=== PATIENT | male | born 1955 | race African-American/Black ===

== ENCOUNTER 2018-02-08 21:24 | Emergency (ER) | payer OTHER, BC ==
[~2018-02-08] VITALS: Ht 170.2 cm; Wt 107.0 kg
[~2018-02-08 21:24] MED LIST: ACETAMINOPHEN325 M1 PO; ALLEGRA ALLERG180 MG PO; ASPIRIN EC325 M1 PO; ASTEPRO INH; CEFDINIR300 MG PO; FLOVENT DISKU100 MCG IH; NEXIUM40 MG PO; NICOTINE TRANSD21 M1 TRANSDERM; PREDNISONE 10 M10 MG PO; PROAIR HFA8.5 GM; ZOCOR 20 MG TAB20 M1 PO
[2018-02-08 21:35] LABS: URINE BILIRUBIN NEGATIVE (Negative); URINE BLOOD NEGATIVE (Negative); URINE CLARITY CLEAR; URINE COLOR YELLOW; URINE GLUCOSE-RANDOM* NEGATIVE (Negative); URINE KETONES NEGATIVE (Negative); URINE NITRITE-REFLEX NEGATIVE (Negative); URINE PROTEIN (DIPSTICK) 1+ (Negative); URINE UROBILINOGEN 0.2 E.U./dl (0.2-1.0)
[2018-02-08 21:36] LABS: URINE LEUKOCYTES-REFLEX 1+ (Negative)
[2018-02-08 21:44] LABS: CASTS None Seen /LPF (None Seen); CRYSTALS None Seen /LPF (None Seen)
[2018-02-08 21:45] LABS: SQUAMOUS None Seen /LPF (0-3); URINE RBC None Seen /HPF (0-2)
[2018-02-08 21:46] LABS: BACTERIA-REFLEX 1-9 Few /HPF (None Seen)
[2018-02-08] MEDS ORDERED: BACTRIM DS TAB1 EACH PO (22:13)
[2018-02-08] MEDS ORDERED: FLOMAX0.4 MG PO (22:27)
[2018-02-08 23:19] LABS: ABSOLUTE NEUTROPHILS 8.1 thou/uL (1.4-8.2); BASOPHILS 1.2 % (0.0-2.0); EOSINOPHILS 0.3 % (0.0-3.0); HEMATOCRIT 40.9 % (42.0-52.0); HEMOGLOBIN 13.7 gm/dL (14.0-18.0); LYMPHOCYTES 23.8 % (24.0-44.0); MCH 29.1 pg (26.0-34.0); MCHC 33.4 g/dL (28.0-37.0); MCV 87.2 fL (80.0-100.0); MONOCYTES 9.9 % (1.0-8.0); PLATELET COUNT 252 thou/uL (150-400); POLYS 64.8 % (36.0-66.0); RBC 4.69 mil/uL (4.50-6.00); RDW 15.1 % (10.5-14.5); WBC 12.5 thou/uL (4.0-11.0)
[2018-02-08 23:22] LABS: CALCIUM 9.1 mg/dL (8.5-10.1); CREATININE 1.3 mg/dL (0.7-1.3)
[2018-02-08 23:29] LABS: ALBUMIN 3.6 g/dL (3.4-5.0); TOTAL BILIRUBIN 0.3 mg/dL (<0.1-1.0); TOTAL PROTEIN 8.5 g/dL (6.4-8.2)
[2018-02-08 23:53] VITALS: BP 146/76
== END 2018-02-08 23:54 | disposition home or self-care (01) ==
LOC: ER 21:24
PROVIDERS: Emergency Medicine; Physician Assistant
DX: N41.0 Acute prostatitis (principal); R33.9 Retention of urine, unspecified; J45.909 Unspecified asthma, uncomplicated

== ENCOUNTER 2018-08-31 21:53 | Emergency (ER) | payer OTHER, BC ==
[~2018-08-31] VITALS: Ht 172.7 cm; Wt 109.8 kg
[~2018-08-31 21:53] MED LIST changes: +BACTRIM DS TAB1 EACH PO; +FLOMAX0.4 MG PO
[2018-08-31 22:27] LABS: HEMATOCRIT 40.7 % (42.0-52.0); HEMOGLOBIN 13.6 gm/dL (14.0-18.0); MCH 29.2 pg (26.0-34.0); MCHC 33.3 g/dL (28.0-37.0); MCV 87.5 fL (80.0-100.0); PLATELET COUNT 272 thou/uL (150-400); RBC 4.65 mil/uL (4.50-6.00); RDW 14.9 % (10.5-14.5); WBC 8.9 thou/uL (4.0-11.0)
[2018-08-31 22:37] LABS: CALCIUM 8.4 mg/dL (8.5-10.1); CREATININE 1.2 mg/dL (0.7-1.3); POTASSIUM 3.8 mmol/L (3.5-5.1)
[2018-08-31 22:42] LABS: ALBUMIN 3.6 g/dL (3.4-5.0); TOTAL BILIRUBIN 0.3 mg/dL (<0.1-1.0)
[2018-08-31 22:53] LABS: URINE CLARITY TURBID; URINE COLOR RED
[2018-08-31 22:54] LABS: URINE BILIRUBIN NEGATIVE (Negative); URINE BLOOD 3+ (Negative); URINE GLUCOSE-RANDOM* 1+ (Negative); URINE KETONES NEGATIVE (Negative); URINE LEUKOCYTES-REFLEX NEGATIVE (Negative); URINE NITRITE-REFLEX POSITIVE (Negative); URINE PROTEIN (DIPSTICK) 3+ (Negative); URINE UROBILINOGEN 0.2 E.U./dl (0.2-1.0)
[2018-08-31 23:05] LABS: BACTERIA-REFLEX 1-9 Few /HPF (None Seen); CASTS None Seen /LPF (None Seen); MUCUS None Seen strn/LPF (None Seen); SQUAMOUS None Seen /LPF (0-3); URINE RBC >20 Many /HPF (0-2); URINE WBC-REFLEX 0-5 Rare /HPF (0-5)
[2018-08-31 23:06] LABS: CRYSTALS None Seen /LPF (None Seen)
[2018-08-31 23:42] LABS: ABSOLUTE NEUTROPHILS 1.8 thou/uL (1.4-8.2); ATYPICAL LYMPHS 9 %
[2018-09-01 01:46] VITALS: BP 134/91
== END 2018-09-01 01:46 | disposition short-term general hospital (02) ==
LOC: ER 21:53
PROVIDERS: Emergency Medicine
DX: R31.9 Hematuria, unspecified (principal); J45.909 Unspecified asthma, uncomplicated; Z86.73 Personal history of transient ischemic attack (TIA), and cerebral infarction without residual deficits; Z90.49 Acquired absence of other specified parts of digestive tract

== ENCOUNTER 2020-05-20 16:53 | Inpatient (IN) | payer OTHER ==
[~2020-05-20] VITALS: Ht 165.1 cm; Wt 107.0 kg
--- NOTE | ~2020-05-20 | HC ---
[facility] [place] [address] CONSULTATION Name: HIREN MCCORMACK Room #: 206-P ADM IN M.R.#: [id number] Admission: 05/20/20 Attend Phys: Benjamin Chase MD Discharge: Date of : 51 Report #: [id number] THIS REPORT FOR: cc: FAM - Family physician unknown ANN - Family physician unknown Marco Alvarez MD [facility] ~ CC: ANN unknown Benjamin Chase DATE OF SERVICE: 05/20/2020 HISTORY OF PRESENT ILLNESS: The patient is a 64-year-old male who comes to the Emergency Room with 2 episodes of chest pain 1-2 weeks ago. Chest discomfort is associated with some shortness of breath and diaphoresis and some just chest discomfort last night, which kept him up most of the night. Troponin was 0.15 here. He went to his primary care physician this afternoon who recommended him to the Emergency Room. He has T-wave inversions in the anterior lateral leads and some delayed R waves. This is a change from his EKG from 2012. He has noticed slight decrease in exercise tolerance, but otherwise not terribly symptomatic. He states he has been compliant with his medications and has had no prior cardiac history, but did have a very limited stroke in 2013 without residual. He is a pack a day smoker, perhaps less so now he states. His home medications are Nexium, Bethanie, albuterol, aspirin, simvastatin and Flomax. He states a blood pressure medicine, although I do not see evidence of this on the list. PAST MEDICAL HISTORY: Positive for hypercholesterolemia, some questionable hypertension, rotator cuff surgery, appendectomy and some asthma, limited stroke in 2012 or 2013 without residual. SOCIAL HISTORY: He is single, lives independently. He is retired. He has 2 daughters who are grown. He has a pack every 2 days now and no alcohol. ALLERGIES: No known drug allergies. FAMILY HISTORY: Only positive for brother, who is younger, who had bypass surgery. REVIEW OF SYSTEMS: Essentially negative except for stated above and some nocturia. PHYSICAL EXAMINATION: VITAL SIGNS: Blood pressure initially was hypertensive, currently 150s/70s, pulse is 80s. HEENT: Eyes reveal no xanthelasmas. Pharynx is clear. NECK: Shows preserved upstrokes without JVD or bruits. [facility] [address] [place] [address] CONSULTATION Name: HIREN MCCORMACK ISAIAH Room #: [address] [place] [address] IN ..#: [id number] Admission: 05/20/20 Attend Phys: Benjamin Chase MD Discharge: Date of : 51 Report #: [id number] LUNGS: Clear. CARDIOVASCULAR: Regular rate and rhythm, S4, S1, S2. ABDOMEN: Soft. No HSM or abdominal bruit. EXTREMITIES: Reveal no edema. His pulses were intact. NEUROLOGIC: Nonfocal. SKIN: Warm and dry without xanthoma or ulcer. MUSCULOSKELETAL: Generalized arthritic changes above. LABORATORY DATA: He had a troponin of 0.15. Potassium 3.6, creatinine 1.0. Hemoglobin and hematocrit of 12.7 and 38.2. ASSESSMENT: 1. Non-ST elevation myocardial infarction with abnormal EKG and chest pain, currently pain free. 2. Hypertension. 3. Hypercholesterolemia. 4. History of cerebrovascular accident. 5. Strong family history of premature coronary artery disease. 6. History of tobacco use. RECOMMENDATIONS AND PLAN: IV Lopressor, aspirin and a high dose statin, atorvastatin 80, one shot of Lovenox. Serial EKG in the a.m. Troponin in the a.m. and echo Doppler a.m., presumably will go to the catheterization lab in the a.m. to delineate the anatomy based on what looks to be a non-STEMI presentation here. Discussed the above with Dr. Chase. Thank you for asking me to assist in the care of this patient. By: 1848 [id number] Marco Alvarez MD, FACC /nt
[2020-05-20 17:05] VITALS: BP 175/97
[2020-05-20 17:27] LABS: ABSOLUTE NEUTROPHILS 5.3 thou/uL (1.4-8.2); EOSINOPHILS 0.9 % (0.0-3.0); HEMATOCRIT 38.2 % (42.0-52.0); HEMOGLOBIN 12.7 gm/dL (14.0-18.0); LYMPHOCYTES 37.5 % (24.0-44.0); MCH 27.1 pg (26.0-34.0); MCHC 33.3 g/dL (28.0-37.0); MCV 81.4 fL (80.0-100.0); PLATELET COUNT 388 thou/uL (150-400); POLYS 50.6 % (36.0-66.0); RBC 4.69 mil/uL (4.50-6.00); RDW 16.4 % (10.5-14.5); WBC 10.5 thou/uL (4.0-11.0)
[2020-05-20 17:57] LABS: CALCIUM 8.8 mg/dL (8.5-10.1); POTASSIUM 3.6 mmol/L (3.5-5.1)
[2020-05-20 18:08] LABS: ALBUMIN 4.1 g/dL (3.4-5.0); TOTAL BILIRUBIN 0.1 mg/dL (0.2-1.0); TROPONIN-I 0.15 ng/mL (<0.06)
[2020-05-20 19:35] VITALS: BP 151/86
[2020-05-20 20:09] VITALS: BP 154/80
[2020-05-20 21:00] VITALS: BP 147/79
--- NOTE | 2020-05-21 03:11 | NUR ---
RECEIVED REPORT FROM CINDY ED RN.PATIENT ARRIVED TO ROOM 206 AROUND 2049. A/O X 4.UP INDEPENDENTLY.DENIES CHEST PAIN AND SOB.TROPONIN ELEVATED;DR THAKUR AWARE AND DOESN'T NEED TO BE CALLED FOR THE RESULT.NPO AFTER 2 AM.MONITOR SHOWS SR.POC CONTINUED,
[2020-05-21 04:00] VITALS: BP 136/79
[2020-05-21 05:48] LABS: HEMATOCRIT 39.2 % (42.0-52.0); HEMOGLOBIN 12.7 gm/dL (14.0-18.0); MCH 26.5 pg (26.0-34.0); MCHC 32.4 g/dL (28.0-37.0); MCV 81.6 fL (80.0-100.0); RBC 4.81 mil/uL (4.50-6.00); RDW 16.5 % (10.5-14.5); WBC 8.1 thou/uL (4.0-11.0)
[2020-05-21 05:57] LABS: CREATININE 1.1 mg/dL (0.7-1.3); POTASSIUM 4.2 mmol/L (3.5-5.1)
--- NOTE | 2020-05-21 07:42 | EKG ---
[facility] [place] [address] ELECTROCARDIOGRAM REPORT Name: HIREN MCCORMACK Room #: 206-P ADM IN M.R.#: [id number] Admission: 05/20/20 Attend Phys: Benjamin Chase MD Discharge: Date of : 51 Report #: [id number] THIS REPORT FOR: cc: FAM - Family physician unknown FAM - Family physician unknown Timmy Coleman MD [facility] ~ THIS REPORT FOR: //name// [facility] ED Test Date: 2020-05-20 Test Time: 17:03:04 Pat Name: HIREN MCCORMACK Department: Room: 206 Gender: M Licensed Nurse Practitioner: ARNAUD : 1955 Requested By: Anand Doll Order Number: [id number] MD: Timmy Coleman Measurements Intervals [place] Rate: 90 P: 50 MO: 157 QRS: 1 QRSD: 85 T: 115 QT: 318 QTc: 389 Interpretive Statements Sinus rhythm Left atrial enlargement Abnrm T, consider ischemia, anterolateral lds Compared to ECG 12/08/2011 11:49:06 Possible ischemia now present Electronically Signed On 05-21-2020 7:42:22 CDT by Timmy Coleman [email or web address] <ELECTRONICALLY SIGNED> By: Timmy Coleman MD, FAC 05/21/20 0742 1703 1703 Timmy Coleman MD, [facility] /EPI
[2020-05-21 07:55] LABS: CHOLESTEROL 158 mg/dL (<200); HDL CHOLESTEROL 45 mg/dL (>40); LDL CHOLESTEROL 94 mg/dL (<100); TC:HDL 3.5 Ratio (Not establshd); TRIGLYCERIDE 95 mg/dL (<150); VLDL 19 mg/dL (<40)
[2020-05-21 08:20] VITALS: BP 145/81
--- NOTE | 2020-05-21 08:23 | NUR ---
ASSUMED CARE OF PT AT SHIFT CHANGE, CARDIOLOGY STATED CARDIAC CATH TOMORROW, SO NPO P 6932 TONIGHT, SEE SEPARATE INTERVENTIONS FOR ASSESSMENTS, NO C/O CHEST PAIN AT THIS TIME. CARDIAC MONITORED. ENCOURAGED PT TO USE CALL LIGHT FOR ANY NEEDS
--- NOTE | 2020-05-21 09:44 | EKG ---
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 : 1955 Requested By: Benjamin Chase Order Number: [id number] MD: Massimo Hammond Measurements Intervals [place] Rate: 64 P: 54 SC: 159 QRS: 4 QRSD: 86 T: 145 QT: 461 QTc: 476 Interpretive Statements Sinus rhythm left atrial enlargement Abnrm T T waves with evidence of a biphasic T wave in V2 consistent with proximal lef left anterior descending lesion Compared to ECG 05/20/2020 17:03:04 No significant changes Electronically Signed On 05-21-2020 9:44:24 CDT by Massimo Hammond [email or web address] <ELECTRONICALLY SIGNED> By: Massimo Hammond MD 05/21/2044 7 7 Massimo Hammond MD /EPI
--- NOTE | 2020-05-21 10:14 | NUR ---
WHEN ASKED IF WE CAN REPOSITION PT SHAKES HER HEAD ADAMANTLY, REARRANGING PILLOWS UNDER ARMS AND LEGS W/PERMISSION. SHE'S BEEN COOPERATIVE WITH [facility] THUS FAR SAVE FOR THIS.
[2020-05-21 12:45] VITALS: BP 166/79
--- NOTE | 2020-05-21 13:05 | 2DMMODE ---
[facility] [place] [address] 2 D/M-MODE ECHOCARDIOGRAM Name: HIREN MCCORMACK ISAIAH Room #: 206-P ADM IN M.R.#: [id number] Admission: 05/20/20 Attend Phys: Benjamin Chase MD Discharge: Date of : 53 Report #: [id number] THIS REPORT FOR: cc: FAM - Family physician unknown FAM - Family physician unknown Massimo Hammond MD ~ APPROVED REPORT Study performed: 05/21/2020 11:47:32 EXAM: Comprehensive 2D, Doppler, and color-flow Echocardiogram Patient Location: Bedside Room #: 206 Status: routine BSA: 2.24 HR: 68 bpm BP: 136/79 mmHg Rhythm: NSR Other Information Study Quality: Adequate Indications Elevated Troponin Chest Pain Hypertension/HDD HLD, Hx CVA 2D Dimensions RVDd: 34.41 mm IVSd: 13.69 (7-11mm) LVOT Diam: 18.86 (18-24mm) LVDd: 43.30 mm PWd: 14.16 (7-11mm) Ascending Ao: 28.65 (22-36mm) LVDs: 32.93 (25-40mm) Aortic Root: 29.34 mm IVC: 19.00 mm Volumes Left Atrial Volume (Systole) Single Plane 4CH: 56.76 mL Single Plane 2CH: 58.20 mL LA ESV Index: 28.00 mL/m2 Aortic Valve AoV Peak Axel.: 1.61 m/s AO Peak Gr.: 10.42 mmHg LVOT Max P.70 mmHg [facility] [address] [place] [address] 2 D/M-MODE ECHOCARDIOGRAM Name: HIREN MCCORMACK Room #: 206-P [facility] IN M.R.#: [id number] Admission: 05/20/20 Attend Phys: Benjamin Chase MD Discharge: Date of : 51 Report #: [id number] LVOT Max V: 1.19 m/s MITCH Vmax: 2.07 cm2 AI Vmax: 4.72 m/s AI [place]: 3.27 m/s2 AI PHT: 418.85 ms Mitral Valve E/A Ratio: 0.8 MV Decel. Time: 177.45 ms MV E Max Axel.: 0.81 m/s MV A Axel.: 1.05 m/s MV PHT: 51.46 ms IVRT: 141.87 ms Pulmonary Valve PV Peak Axel.: 1.03 m/s PV Peak Gr.: 4.20 mmHg Pulmonary Vein P Vein S: 0.58 m/s P Vein A: 0.27 m/s P Vein D: 0.23 m/s P Vein A Dur.: 131.5 msec P Vein S/D Ratio: 2.52 Tricuspid Valve RAP Estimate: 5.00 mmHg Left Ventricle The left ventricle is normal size. Mild to moderate concentric left ventricular hypertrophy. The left ventricular systolic function is normal. The left ventricular ejection fraction is within the normal range. LVEF is 50-55%. Mild diastolic dysfunction is present (impaired relaxation pattern). Right Ventricle The right ventricle is normal size. The right ventricular systolic function is normal. Atria The left atrium size is normal. The right atrium size is normal. Aortic Valve Aortic valve is mildly calcified. Mild aortic regurgitation. There is no aortic valvular stenosis. Mitral Valve The mitral valve is normal in structure. Trace mitral regurgitation. [facility] [address] [place] [address] 2 D/M-MODE ECHOCARDIOGRAM Name: HIREN MCCORMACK ISAIAH Room #: 206-P ADM IN .R.#: [id number] Admission: 05/20/20 Attend Phys: Benjamin Chase MD Discharge: Date of : 51 Report #: [id number] No evidence of mitral valve stenosis. Tricuspid Valve The tricuspid valve is normal in structure. There is no tricuspid valve regurgitation noted. Unable to assess PA pressure. Pulmonic Valve Pulmonic valve is not well visualized. There is no pulmonic valvular regurgitation noted. Great Vessels The aortic root is normal in size. IVC is normal in size and collapses >50% with inspiration. Pericardium There is no pericardial effusion. <Conclusion> The left ventricle is normal size. Mild to moderate concentric left ventricular hypertrophy. LVEF is 50-55%. Aortic valve has mild to focal calcification Mild aortic regurgitation. The mitral valve is normal in structure. Trace mitral regurgitation. The tricuspid valve is normal in structure. There is no tricuspid valve regurgitation noted. Unable to assess PA pressure. Pulmonic valve is not well visualized. There is no pericardial effusion. <ELECTRONICALLY SIGNED> By: Massimo Hammond MD 05/21/20 1305 1305 1305 Massimo Hammond MD /INF
[2020-05-21 15:30] VITALS: BP 145/74
[2020-05-21 20:35] VITALS: BP 139/69
--- NOTE | 2020-05-22 03:31 | NUR ---
ASSESSMENTS CHARTED, MEDS CHARTED GIVEN. PATIENT RESTING IN BED DURING SHIFT. UP AT NADJA IN ROOM. DENIED PAIN DURING SHIFT. PATIENT HAS BEEN NPO SINCE MIDNIGHT FOR HEART CATH IN AM. HOLDING ELIQUIS UNTIL PROCEDURE IS OVER. FALL PRECAUTIONS IN PLACE DURING SHIFT. DENIED PAIN.
[2020-05-22 06:16] VITALS: BP 138/65
[2020-05-22 07:32] VITALS: BP 129/60
--- NOTE | 2020-05-22 08:58 | NUR ---
THE RADIAL ROUTER OPERATOR CALLED FOR 'PATHOLOGY SECRETARY/TRANSCRIPTIONIST MEDICATIONS"-TO BE GIVEN AND ASA AND LIPITOR WERE TAKEN AT THIS TIME. PT. DENIES ANY CHEST PAIN THIS AM. CONSENT FOR PROCEDURE IS IN THE CHART AND SIGNED. REVIEWED WITH HIM WHAT THE PROCEDURE WOULD BE LIKE AND EXPECATIONS FOR AFTER SUCH AND RESTING THE INSERTION SITE AREA. PT. VERBALISED UNDERSTANDING OF SUCH.
--- NOTE | 2020-05-22 13:18 | NUR ---
PT. IN [employer] STILL AT THIS TIME, OFF UNIT.
--- NOTE | 2020-05-22 13:39 | NUR ---
MACHINE MAINTENANCE TECHNICIAN CALLED FOR REPORT AT THIS TIME.
[2020-05-22 14:15] VITALS: BP 132/80
[2020-05-22 14:30] VITALS: BP 139/77
--- NOTE | 2020-05-22 17:03 | CATHLAB ---
[facility] [place] [address] INVASIVE PROCEDURE REPORT Name: HIREN MCCORMACK Room #: 206-P ADM IN M.R.#: [id number] Admission: 05/20/20 Attend Phys: Benjamin Chase MD Discharge: Date of : 53 Report #: [id number] THIS REPORT FOR: cc: FAM - Family physician unknown FAM - Family physician unknown Marco Alvarez MD [facility] ~ APPROVED REPORT Study performed: 05/22/2020 11:33:55 Patient Details Patient Status: In-Patient Room #: 206 The patient is a 64 year-old male Event Personnel Marco Alvarez Structural Fitter, Mark Quinn RN RN, MaribellMatilde manuel RTR Monitor, Brooke Claire RTR, CONVENTION[employer] M[employer]GAGE UNDERWRITER Scrub Procedures Performed Art Access - R femoral artery* Left Heart Cath w/or w/o Coronaries [id number] [facility] [address] Place w/wo Plasty Single LAD [id number] Aortogram Abdominal Peripheral Angio 167353 50568 Initial Mod Sed Same Phys/QHP Gr5y 140170 21650 Mod Sed Same Phys/QHP Ea 766239 Hemostasis w/ Mynx Procedure Narrative The Right Groin^ was infiltrated with 1% Lidocaine subcutaneous anesthesia. A PINNACLE 6FR Sheath #[id number] sheath was inserted into the RFA^. Coronary angiography was performed using coronary diagnostic catheters. The right coronary system was accessed and visualized with a JR4 catheter. The left coronary system was accessed and visualized with a JL4 catheter. The left ventricle was accessed and visualized with a PIGTAIL catheter. Left ventriculogram was performed in 30 degree projection. An aortogram of the abdominal aorta was performed. Closure device was deployed with a Fr MYNXGRIP 6/7F #[id number]. The patient tolerated the procedure well and there were no complications associated with the procedure. There was no hematoma. Intraoperative Conscious Sedation Sedation start time: 12:23 Case end Time: 13:28 Fentanyl 100 mcg Versed [address] [facility] [place] [address] [place] [address] INVASIVE PROCEDURE REPORT Name: KSENIAHIREN ISAIAH Room #: 206-P [facility] IN [facility]#: [id number] Admission: 05/20/20 Attend Phys: Benjamin Chase MD Discharge: Date of : 53 Report #: [id number] Fluoro Time: 10.90 minutes Dose: DAP 07611.70 cGycm2 4236 mGy Contrast Type and Amount: Omnipaque 250 ml Hemodynamics The aortic pressure is 152/72 mmHg with a mean of 43 mmHg. The left ventricular pressure is 160/10 mmHg with a mean of mmHg. The left ventricular end diastolic pressure is 24 mmHg. PCI Technique Lesion Percutaneous coronary intervention was performed on the proximal left anterior descending artery segment. A LAUNCHER 6FR EBU 3.75 #[id number] Guide Catheter was used to engage the ostium. A Luge Wire .014 x 182CM #[id number] Interventional Guidewire was used to cross the lesion. BALLOON DILATION A Balloon catheter Sprinter OTW 2.5 x 15 #[id number] was inserted and inflated up to 8.00atm for 18seconds. Additional Inflation: 10.00atm for 18seconds. Additional Inflation: 12.00atm for 18seconds. STENT DEPLOYMENT A drug-eluting stent RESOLUTE LATANYA OTW 3.0 X 18 #[id number] was inserted and inflated up to 12.00atm for 26seconds. Additional Inflation: 14.00atm for 19seconds. A Resolute Latanya 2.75mm x 15mm OTW Stent was placed distally to the first stent. 14 SHAKIR for 26 seconds. 18 SHAKIR for 19 seconds. Conclusion #1. Successful PTCA stent of subtotal proximal LAD and then subsequent mid 80% LAD in sequence. Placement of a 3 .0 by by 18 resolute drug-eluting stent followed by a 2.75 x 15 resolute drug-eluting stent all postdilated 3 mm JORDAN grade III flow around this large wraparound LAD. Proximal LAD lesion of 40% will follow. #2 left main mild disease mild ostial narrowing of 30% giving rise to LAD and dominant circumflex. #3 dominant circumflex with mild disease no occlusive disease. #4 nondominant RCA no occlusive disease #5 normal ventricular size and systolic function EF 60% #6 abdominal aortogram revealing mild aortic ectasia but no definite aneurysm. Brisk flow into the iliac system. Conditions and plan: Continue aggressive risk factor modification. [address] [address] INVASIVE PROCEDURE REPORT Name: HIREN MCCORMACK Room #: 206-P [facility] IN M.R.#: [id number] Admission: 05/20/20 Attend Phys: Benjamin Chase MD Discharge: Date of : 51 Report #: [id number] Dual antiplatelet therapy initiated for LAD stents. Patient is pain-free transfer to CCU to follow post coronary stent protocol. <ELECTRONICALLY SIGNED> By: Marco Alvarez MD, FACC 05/22/201701 01 01 Marco Alvarez MD, FACC /INF
--- NOTE | 2020-05-22 17:54 | NUR ---
16:30 OFF BEDREST AT THIS TIME. PT DEMIES ANY CHEST PAIN. NO SOB. RIGHT GROIN CATH SITE IS HEMATOMA FREE, GUAZE DRESSING IS C,D,I WITH NO OOZING AT SITE/ DISTAL PULSES ARE STRONG 2+ BILATERALLY. BOTH LOWER EXTREMETIES ARE WARM TO TOUCH. EATING AND AMBULATING SLOWLY TO THE RESTROOM NOW. NO ECTOPY AND NSR ON THE MONITOR.
[2020-05-22 19:00] VITALS: BP 156/75
[2020-05-22 23:44] VITALS: BP 145/66
--- NOTE | 2020-05-23 01:45 | NUR ---
ASSESSMENTS CHARTED, MEDS CHARTED GIVEN. PATIENT RESTING IN BED DURING SHIFT AFTER VISIT TO HUMAN RESOURCES MANAGER DURING THE DAY. OFF BEDREST PRIOR TO START OF SHIFT. UP AT NADJA IN ROOM. DENIED PAIN. RIGHT GROIN SITE C/D/I AND SOFT. PLAN OF CARE IS TO BE DISCHARGED IN AM. FALL PRECAUTIONS IN PLACE DURING SHIFT.
[2020-05-23 04:00] VITALS: BP 132/59
[2020-05-23 04:52] LABS: HEMATOCRIT 38.1 % (42.0-52.0); HEMOGLOBIN 12.2 gm/dL (14.0-18.0); MCH 26.1 pg (26.0-34.0); MCHC 32.1 g/dL (28.0-37.0); MCV 81.3 fL (80.0-100.0); RBC 4.69 mil/uL (4.50-6.00); RDW 16.7 % (10.5-14.5); WBC 8.4 thou/uL (4.0-11.0)
[2020-05-23 05:11] LABS: ALBUMIN 3.3 g/dL (3.4-5.0); CALCIUM 8.6 mg/dL (8.5-10.1); CREATININE 1.4 mg/dL (0.7-1.3); POTASSIUM 3.9 mmol/L (3.5-5.1); TOTAL BILIRUBIN 0.6 mg/dL (0.2-1.0)
[2020-05-23 05:17] LABS: TROPONIN-I 2.05 ng/mL (<0.06)
[2020-05-23] MEDS ORDERED: ELIQUIS5 MG PO (07:23)
[2020-05-23] MEDS ORDERED: METOPROLOL SUCC25 M1 PO (07:23)
[2020-05-23] MEDS ORDERED: CLOPIDOGREL75 MG PO (07:23)
[2020-05-23] MEDS ORDERED: LIPITOR40 MG PO (07:37)
[2020-05-23] MEDS ORDERED: BENICAR20 MG PO (07:37)
[2020-05-23 07:43] VITALS: BP 152/77
--- NOTE | 2020-05-23 07:56 | EKG ---
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 : 1955 Requested By: Marie Persaud Order Number: [id number] MD: Fortunato Torres Measurements Intervals [place] Rate: 67 P: 61 LA: 157 QRS: 0 QRSD: 88 T: 147 QT: 429 QTc: 453 Interpretive Statements Sinus rhythm Abnrm T, probable ischemia, anterolateral lds Compared to ECG 05/21/2020 07:28:37 No significant change was found Electronically Signed On 05-23-2020 7:56:17 CDT by Fortunato Torres [email or web address] <ELECTRONICALLY SIGNED> By: Fortunato Torres MD, [facility] 05/23/20 0756 0706 Fortunato Torres MD, [facility] /EPI
[2020-05-23 11:11] VITALS: BP 152/77
== END 2020-05-23 12:05 | disposition home or self-care (01) | DRG 246 ==
LOC: ER 16:53 → EROBS 18:24 → 2N 18:24
PROVIDERS: Emergency Medicine; Nurse Practitioner Adult Health; ADMIT Hospitalist; ATTEND Hospitalist
PROC: B2111ZZ Fluoroscopy of Multiple Coronary Arteries using Low Osmolar Contrast (ICD-10-PCS; principal; 2020-05-22)
PROC: B2151ZZ Fluoroscopy of Left Heart using Low Osmolar Contrast (ICD-10-PCS; principal; 2020-05-22)
PROC: 4A023N7 Measurement of Cardiac Sampling and Pressure, Left Heart, Percutaneous Approach (ICD-10-PCS; principal; 2020-05-22)
PROC: 027035Z Dilation of Coronary Artery, One Artery with Two Drug-eluting Intraluminal Devices, Percutaneous Approach (ICD-10-PCS; principal; 2020-05-22)
PROC: B4101ZZ Fluoroscopy of Abdominal Aorta using Low Osmolar Contrast (ICD-10-PCS; principal; 2020-05-22)
DX: I21.4 Non-ST elevation (NSTEMI) myocardial infarction (principal); I50.31 Acute diastolic (congestive) heart failure; Z90.49 Acquired absence of other specified parts of digestive tract; I20.0 Unstable angina; I10 Essential (primary) hypertension; E78.5 Hyperlipidemia, unspecified; E78.00 Pure hypercholesterolemia, unspecified; F17.210 Nicotine dependence, cigarettes, uncomplicated; J44.9 Chronic obstructive pulmonary disease, unspecified; K21.9 Gastro-esophageal reflux disease without esophagitis; J45.909 Unspecified asthma, uncomplicated; Z82.49 Family history of ischemic heart disease and other diseases of the circulatory system; Z86.73 Personal history of transient ischemic attack (TIA), and cerebral infarction without residual deficits; Z71.6 Tobacco abuse counseling
CPT/HCPCS: 10081

== ENCOUNTER → 2020-06-24 | Outpatient (CLI) | payer OTHER ==
[~2020-06-24] MED LIST changes: +BENICAR20 MG PO; +CLOPIDOGREL75 MG PO; +ELIQUIS5 MG PO; +LIPITOR40 MG PO; +METOPROLOL SUCC25 M1 PO
== END ==
LOC: SJCVCIMAG 08:48
PROVIDERS: ATTEND Internal Medicine Cardiovascular Disease
DX: I77.811 Abdominal aortic ectasia (principal); F17.200 Nicotine dependence, unspecified, uncomplicated; Z79.899 Other long term (current) drug therapy